=== PATIENT | female | born 2000 | race Two or more races ===

== ENCOUNTER 2024-05-14 13:18 | Inpatient (IN) | payer OTHER ==
[~2024-05-14] VITALS: Ht 157.5 cm; Wt 59.9 kg
[2024-05-14 13:00] VITALS: BP 122/83
[2024-05-14] MEDS ORDERED: PRENATAL TABLE1 EAC1 PO (13:29)
[2024-05-14] MEDS ORDERED: PANADOL EXTRA500 MG PO (13:29)
[2024-05-14] MEDS ORDERED: RINGERS SOLUTION,LACTATED 1,000 ML IV SCH (13:30)
[2024-05-14] MEDS ORDERED: IRON325 MG PO (13:30)
[2024-05-14] MEDS ORDERED: TERBUTALINE SULFATE 1 MG/ML AMPUL SUBCUTANEO SCH ×2 (13:30→17:30)
[2024-05-14 15:21] VITALS: BP 127/76
[2024-05-14 15:36] LABS: HEMATOCRIT 34.7 % (36.0-45.00); HEMOGLOBIN 11.9 g/dL (12.0-15.00); MEAN CELL VOLUME 99.4 fL (80.00-100.00); MEAN CORPUSCULAR HGB CONC 34.2 g/dl (32.0-36.0); PLATELET COUNT 171 K/uL (150-450); RED BLOOD COUNT 3.49 M/uL (4.00-6.00); RED CELL DISTRIBUTION WIDTH 12.8 % (11.5-14.5)
[2024-05-14 15:38] LABS: PH,URINE 7.5 (5.0-8.0); URINE APPEARANCE Cloudy; URINE BILIRRUBIN Negative (NEGATIVE); URINE BLOOD Trace; URINE COLOR Yellow; URINE GLUCOSE Negative (NEGATIVE); URINE KETONE Negative (NEGATIVE); URINE LEUKOCYTE Large; URINE NITRATE Negative; URINE PROTEIN Trace (NEGATIVE)
[2024-05-14 15:42] LABS: URINE BACTERIA 3789.4 uL (0.0-1933); URINE EPITHELIAL CELLS 111.1 uL (0.0-38.8); URINE WBC 568.5 uL (0.0-23.2)
[2024-05-14 15:57] LABS: URINE RBC 0.7 uL (0.0-20.8)
[2024-05-14] MEDS ORDERED: TERBUTALINE SULFATE 1 MG/ML AMPUL ONE (17:07)
[2024-05-14 19:13] VITALS: BP 115/75
[2024-05-14] MEDS ORDERED: NIFEDIPINE 30 MG TAB.SA.OSM PO SCH (20:19)
[2024-05-14 22:30] VITALS: BP 108/68
[2024-05-14] MEDS ORDERED: MORPHINE SULFATE 4 MG/ML CARTRIDGE IV ONE (22:30)
[2024-05-14] MEDS ORDERED: CEFAZOLIN SODIUM 1,000 MG VIAL IV ONE (22:30)
[2024-05-14 23:07] VITALS: BP 102/60
[2024-05-14] MEDS ORDERED: TERBUTALINE SULFATE 1 MG/ML AMPUL SUBCUTANEO ONE (23:45)
[2024-05-15] VITALS (9 sets, daily range): BP systolic 111–126; BP diastolic 59–85
[2024-05-15] MEDS ORDERED: BETAMETHASONE ACETATE,SOD PHOS 30 MG/5 ML ML IM STA (04:15)
[2024-05-15] MEDS ORDERED: MORPHINE SULFATE 4 MG/ML CARTRIDGE IV ONE (04:30)
[2024-05-15] MEDS ORDERED: AMPICILLIN SODIUM 2,000 MG VIAL IV ONE (04:30)
[2024-05-15] MEDS ORDERED: CEFAZOLIN SODIUM 1,000 MG VIAL IV SCH (06:00)
[2024-05-15 07:36] LABS: INR < 0.93; PARTIAL THROMBOPLASTIN TIME 28.5 SECONDS (22.0-34.0); PROTHROMBIN TIME 9.8 SECONDS (9.0-11.5)
[2024-05-15 08:02] LABS: CALCIUM 8.9 mg/dL (8.5-10.1); CREATININE SERUM 0.46 mg/dL (0.55-1.02); GFR 171.48; POTASSIUM 3.54 mEq/L (3.5-5.1)
[2024-05-15] MEDS ORDERED: AMPICILLIN SODIUM 1,000 MG VIAL IV SCH (09:00)
[2024-05-15] MEDS ORDERED: MORPHINE SULFATE 4 MG/ML VIAL IV ONE (14:15)
[2024-05-15] MEDS ORDERED: BETAMETHASONE ACETATE,SOD PHOS 30 MG/5 ML ML IM ONE (16:20)
[2024-05-15] MEDS ORDERED: ACETAMINOPHEN 500 MG GEL..CAP PO ONE (22:30)
[2024-05-16] VITALS (7 sets, daily range): BP systolic 102–124; BP diastolic 61–76
[2024-05-16] MEDS ORDERED: MORPHINE SULFATE 4 MG/ML VIAL IV ONE (01:00)
[2024-05-16] MEDS ORDERED: OXYTOCIN 20 UNITS/1000ML RL PIGGYBAG IV ONE (09:55)
[2024-05-16] MEDS ORDERED: ERYTHROMYCIN BASE OPHT 1GM EACH TUBE OP ONE ×2 (09:55→13:15)
[2024-05-16] MEDS ORDERED: OXYTOCIN 10 UNITS/ML VIAL ONE (09:55)
[2024-05-16] MEDS ORDERED: LIDOCAINE HCL 1% 10ML VIAL ONE (09:56)
[2024-05-16] MEDS ORDERED: CHLORHEXIDINE GLUCONATE 120 ML BOTTLE TOP ONE ×2 (09:56→13:00)
[2024-05-16] MEDS ORDERED: OXYTOCIN 500 ML IV SCH (10:30)
[2024-05-16] MEDS ORDERED: OXYTOCIN 20 UNITS/500ML RL PIGGYBAG IV ONE (10:40)
[2024-05-16] MEDS ORDERED: IBUprofen 400 MG TABLET PO PRN (12:45)
[2024-05-16] MEDS ORDERED: OXYTOCIN 1,000 ML IV SCH (13:00)
[2024-05-16] MEDS ORDERED: OXYTOCIN 10 UNITS/ML VIAL IM STA (13:00)
[2024-05-16] MEDS ORDERED: LIDOCAINE HCL 1% 10ML VIAL PERCUT ONE (13:15)
[2024-05-16 18:44] LABS: HEMATOCRIT 35.1 % (36.0-45.00); HEMOGLOBIN 11.9 g/dL (12.0-15.00); MEAN CELL VOLUME 99.9 fL (80.00-100.00); MEAN CORPUSCULAR HEMOGLOBIN 33.7 pg (27.00-32.0); MEAN CORPUSCULAR HGB CONC 33.8 g/dl (32.0-36.0); PLATELET COUNT 197 K/uL (150-450); RED BLOOD COUNT 3.52 M/uL (4.00-6.00); RED CELL DISTRIBUTION WIDTH 12.9 % (11.5-14.5)
[2024-05-17 08:00] VITALS: BP 117/75
[2024-05-17 15:22] VITALS: BP 112/77
[2024-05-18 01:46] VITALS: BP 95/64
[2024-05-18 08:00] VITALS: BP 113/76
== END 2024-05-18 14:58 | disposition home or self-care (01) | DRG 805 ==
LOC: OBS/DEL 13:18 → OB/GYN 05-15 04:13 → LDR 05-15 04:13 → OB/GYN 05-16 13:28
PROVIDERS: Obstetrics & Gynecology; ADMIT Specialist; ATTEND Specialist
PROC: 4A1HXCZ Monitoring of Products of Conception, Cardiac Rate, External Approach (ICD-10-PCS; 2024-05-15)
PROC: 10E0XZZ Delivery of Products of Conception, External Approach (ICD-10-PCS; principal; 2024-05-16)
PROC: 0UQMXZZ Repair Vulva, External Approach (ICD-10-PCS; 2024-05-16)
DX: O71.82 Other specified trauma to perineum and vulva (principal); O41.1430 Placentitis, third trimester, not applicable or unspecified; Z37.0 Single live birth; O60.14X0 Preterm labor third trimester with preterm delivery third trimester, not applicable or unspecified; Z3A.35 35 weeks gestation of pregnancy

== ENCOUNTER 2024-08-01 12:46 | Emergency (ER) | payer OTHER ==
[~2024-08-01] VITALS: Ht 157.5 cm; Wt 54.4 kg
[~2024-08-01 12:46] MED LIST: IRON325 MG PO; PANADOL EXTRA500 MG PO; PRENATAL TABLE1 EAC1 PO
[2024-08-01] MEDS ORDERED: ONDANSETRON 4 MG TAB.RAPDIS PO ONE ×2 (14:00→14:07)
[2024-08-01] MEDS ORDERED: FAMOtidine 40 MG TABLET PO ONE (14:00)
[2024-08-01] MEDS ORDERED: BUTALB/ACETAMINOPHEN/CAFFEINE 1 TAB TABLET PO ONE ×2 (14:00→14:14)
[2024-08-01] MEDS ORDERED: ACETAMINOPHEN 500 MG GEL..CAP PO ONE (14:07)
[2024-08-01 14:31] LABS: HEMATOCRIT 41.1 % (36.0-45.00); HEMOGLOBIN 13.7 g/dL (12.0-15.00); MEAN CELL VOLUME 95.3 fL (80.00-100.00); MEAN CORPUSCULAR HEMOGLOBIN 31.8 pg (27.00-32.0); MEAN CORPUSCULAR HGB CONC 33.4 g/dl (32.0-36.0); PLATELET COUNT 181 K/uL (150-450); RED BLOOD COUNT 4.32 M/uL (4.00-6.00); RED CELL DISTRIBUTION WIDTH 12.5 % (11.5-14.5)
[2024-08-01] MEDS ORDERED: PEPCID AC20 MG PO (15:45)
[2024-08-01] MEDS ORDERED: ZOFRAN8 MG PO (15:45)
== END 2024-08-01 15:49 | disposition home or self-care (01) ==
LOC: ER 12:47
PROVIDERS: General Practice
DX: R11.2 Nausea with vomiting, unspecified (principal); R51.9 Headache, unspecified; Z20.822 Contact with and (suspected) exposure to COVID-19

== ENCOUNTER → 2024-08-16 | Emergency (ER) | payer OTHER ==
[~2024-08-16] MED LIST changes: +PEPCID AC20 MG PO; +ZOFRAN8 MG PO
== END | disposition home or self-care (01) ==
LOC: ER 12:25
DX: J02.8 Acute pharyngitis due to other specified organisms (principal); K59.00 Constipation, unspecified; F41.9 Anxiety disorder, unspecified

== ENCOUNTER → 2024-11-08 | Emergency (ER) | payer OTHER ==
[~2024-11-08] VITALS: Ht 157.5 cm; Wt 54.4 kg
[~2024-11-08] MED LIST changes: +AMOX1TAB5 PO; +LEVALBUTER0.63 MG/3 IH; +SINGULAIR10 MG PO
[2024-11-08 06:53] LABS: BASO % 0.5 % (0.1-1.2); EOS # 0.12 (0.04-0.54); EOS % 1.4 % (0.7-7.0); LYMPH # 1.68 (1.18-3.74); LYMPH % 19.2 % (19.3-53.1); MEAN PLATELET VOLUME 9.60 fl (9.4-12.4); MONO # 0.66 (0.24-0.82); MONO % 7.5 % (4.7-12.5); NEUT # 6.23 (1.56-6.13); NEUT % 71.2 % (34.0-71.1); RED CELL DISTRIBUTION WIDTH 13.0 % (11.6-14.4)
[2024-11-08 08:27] LABS: COVID-19 AG NEGATIVE (NEGATIVE)
[2024-11-08 10:45] VITALS: BP 110/65; O2SAT 97
== END | disposition home or self-care (01) ==
LOC: ER 04:44
DX: J00 Acute nasopharyngitis [common cold] (principal); Z20.822 Contact with and (suspected) exposure to COVID-19; Z91.013 Allergy to seafood